=== PATIENT | female | born 1995 | race African-American/Black ===

== ENCOUNTER 2016-08-10 17:55 | Emergency (ER) | payer MEDICAID ==
[~2016-08-10] VITALS: Ht 167.6 cm; Wt 87.1 kg
[2016-08-10 18:10] VITALS: BP 111/56
[2016-08-10 18:29] LABS: BILIRUBIN,URINE NEGATIVE (NEG); GLUCOSE,URINE NEGATIVE (NEG); NITRITE,URINE NEGATIVE (NEG); PH,URINE 6.5; PROTEIN,URINE NEGATIVE (NEG-TRACE)
--- NOTE | 2016-08-10 18:41 | PHYS DOC ---
Past Medical History Past Medical History: No Pertinent History Past Surgical History: No Surgical History Alcohol Use: None Drug Use: None Adult General Chief Complaint Chief Complaint: SEXUALLY TRANSMITTED DISEASE HPI HPI Patient is a 21 year old female presents emergency department stating that she is wanting to be checked for sexually transmitted infections. She states that her roommate has Trichomonas in her roommate told her that she could catch the Trichomonas by the toilet seat. Patient states that she has sexually active with one partner without protection. She has not really concerned for sexually transmitted infections by way of sexual intercourse. Patient states that she has been having some white vaginal discharge she states that there is been no odor. She denies any abdominal pain, no nausea no vomiting no fever or chills. Patient denies any urinary symptoms. Review of Systems Review of Systems Constitutional: Denies fever or chills [] Eyes: Denies change in visual acuity, redness, or eye pain [] HENT: Denies nasal congestion or sore throat [] Respiratory: Denies cough or shortness of breath [] Cardiovascular: No additional information not addressed in HPI [] GI: Denies abdominal pain, nausea, vomiting, bloody stools or diarrhea [] : Denies dysuria or hematuria [] Musculoskeletal: Denies back pain or joint pain [] Integument: Denies rash or skin lesions [] Neurologic: Denies headache, focal weakness or sensory changes [] Endocrine: Denies polyuria or polydipsia [] Current Medications Current Medications Current Medications Medications (Trade) Dose Ordered Sig/Annabella Start Time Stop Time Status Last Admin Dose Admin Azithromycin (Zithromax) 1,000 mg 1X ONCE 08/10/16 18:45 08/10/16 18:46 DC 08/10/16 19:01 1,000 MG Ceftriaxone Sodium (Rocephin Im) 250 mg 1X ONCE 08/10/16 18:45 08/10/16 18:46 DC 08/10/16 19:02 250 MG Metronidazole (Flagyl) 2,000 mg 1X ONCE 08/10/16 18:45 08/10/16 18:46 DC 08/10/16 19:02 2,000 MG Allergies Allergies Allergies Coded Allergies Type Severity Reaction Last Updated Verified No Known Drug Allergies 08/10/16 No Physical Exam Physical Exam Constitutional: Well developed, well nourished, no acute distress, non-toxic appearance. [] HENT: Normocephalic, atraumatic, bilateral external ears normal, oropharynx moist, no oral exudates, nose normal. [] Eyes: PERRLA, EOMI, conjunctiva normal, no discharge. [] Neck: Normal range of motion, no tenderness, supple, no stridor. [] Cardiovascular:Heart rate regular rhythm, no murmur [] Lungs & Thorax: Bilateral breath sounds clear to auscultation [] Skin: Warm, dry, no erythema, no rash. [] Back: No tenderness Extremities: No tenderness, no cyanosis, no clubbing, ROM intact, no edema. [] Neurologic: Alert and oriented X 3, normal motor function, normal sensory function, no focal deficits noted. [] Psychologic: Affect normal, judgement normal, mood normal. [] Vaginal exam: Speculum exam patient noted to have white thick discharge. Manual exam no adnexal tenderness, no CMT noted Current Patient Data Vital Signs Vital Signs Date Time Temp Pulse Resp B/P (MAP) Pulse Ox O2 Delivery O2 Flow Rate FiO2 08/10/16 18:10 98.6 77 16 98 Room Air 98.6 Lab Values Laboratory Tests Test 08/10/16 17:27 08/10/16 18:15 POC Urine HCG, Qualitative Hcg negative (Negative) Urine Collection Type Unknown Urine Color Yellow Urine Clarity Clear Urine pH 6.5 Urine Specific [place] 1.020 Urine Protein Negative mg/dL (NEG-TRACE) Urine Glucose (UA) Negative mg/dL (NEG) Urine Ketones (Stick) Negative mg/dL (NEG) Urine Blood Negative (NEG) Urine Nitrite Negative (NEG) Urine Bilirubin Negative (NEG) Urine Urobilinogen Dipstick 2.0 mg/dL (0.2 mg/dL) Urine Leukocyte Esterase Moderate (NEG) Urine RBC 0 /HPF (0-2) Urine WBC 5-10 /HPF (0-4) Urine Squamous Epithelial Cells Mod /LPF Urine Bacteria Few /HPF (0-FEW) Urine Mucus Slight /LPF Microbiology 08/10/16 Wet Prep - Final, Complete EKG EKG [] Radiology/Procedures Radiology/Procedures [] Course & Med Decision Making Course & Med Decision Making Pertinent Labs and Imaging studies reviewed. (See chart for details) Patient was educated on STD exposure and transmission. Patient is still requesting to be treated for sexually transmitted infections she'll be provided with Rocephin and Zithromax and Flagyl. Wet prep was negative. Patient was positive for urinary tract infection. She'll be provided with Macrobid with encouragement to drink plenty of fluids such as water and cranberry juice. Also recommended avoiding cranberry juice cocktail carbonate beverages citrus fruits and alcohol sees her considered irritants to the bladder. Patient was provided with signs symptoms to return back to emergency department. She'll be discharged home in stable condition. [] Dragon Disclaimer Dragon Disclaimer This electronic medical record was generated, in whole or in part, using a voice recognition dictation system. Departure Departure Impression: Primary Impression: Urinary tract infection Additional Impression: Concern about STD in female without diagnosis Disposition: 01 HOME, SELF-CARE Condition: STABLE Referrals: NO PCP (PCP) Patient Instructions: Urinary Tract Infection, [id number] Additional Instructions: Activity as tolerated. Medication as prescribed. Tylenol or ibuprofen for fever chills or generalized body aches and discomfort. Drink plenty of fluids such as water and cranberry juice. Avoid cranberry juice cocktail, carbonate beverages, citrus fruits and alcohol sees her considered irritants to the bladder. Follow-up through primary care physician in the next 7-10 days. Return back to emergency prior signs symptoms of become worse. Scripts Nitrofurantoin Monohyd/M-Cryst (MACROBID 100 MG CAPSULE) 100 Mg Capsule 1 CAP PO BID, #14 CAP Prov: RON VIRK APRN 08/10/16 Problem Qualifiers RON VIRK APRN August 10, 2016 18:41
[2016-08-10 18:45] LABS: BACTERIA,URINE FEW /HPF (0-FEW); RBC,URINE 0 /HPF (0-2); SQUAMOUS EPITHELIAL CELL,UR MOD /LPF
[2016-08-10] MEDS ORDERED: cefTRIAXone IM 250 MG VIAL IM ONE (18:45)
[2016-08-10] MEDS ORDERED: metroNIDAZOLE 500 MG TABLET PO ONE (18:45)
[2016-08-10] MEDS ORDERED: AZITHROMYCIN 250 MG TABLET. PO ONE (18:45)
[2016-08-10] MEDS ORDERED: NITR100C62 PO (18:56)
--- NOTE | 2016-08-13 16:11 | VNOTE ---
CALL BACK NOTE CALL BACK Microbiology 08/10/16 Wet Prep - Final, Complete Patient is positive for gonorrhea and was not treated. I attempted to call her, she has no voicemail. Information given to the assisted living nursing director to contact patient. BRENDAN NOBLES APRN August 13, 2016 16:10
--- NOTE | 2016-08-13 16:22 | VNOTE ---
CALL BACK NOTE CALL BACK Microbiology 08/10/16 Wet Prep - Final, Complete Patient returned our call concerning her STD results. She was informed she tested positive for gonorrhea and educated about sexually transmitted diseases including treatment as well as prevention. I did instruct her to contact all has sex partners and ask them to get treated. BRENDAN NOBLES APRN August 13, 2016 16:22
== END 2016-08-10 19:12 | disposition home or self-care (01) ==
LOC: ER 17:55
DX: N39.0 Urinary tract infection, site not specified (principal); A54.9 Gonococcal infection, unspecified
CPT/HCPCS: 81001; 81025; 87491; 87591; 96372; 99284; J0696; Q0111; Q0144

== ENCOUNTER 2016-09-17 21:26 | Emergency (ER) | payer MEDICAID ==
[~2016-09-17] VITALS: Ht 167.6 cm; Wt 89.4 kg
[~2016-09-17 21:26] MED LIST: NITR100C62 PO
[2016-09-17 21:41] VITALS: BP 108/55
[2016-09-17 22:07] LABS: BILIRUBIN,URINE NEGATIVE (NEG); GLUCOSE,URINE NEGATIVE (NEG); NITRITE,URINE NEGATIVE (NEG); PROTEIN,URINE NEGATIVE (NEG-TRACE); UROBILINOGEN,URINE 0.2 mg/dL (0.2 mg/dL)
[2016-09-17 22:18] LABS: BACTERIA,URINE MANY /HPF (0-FEW); RBC,URINE 0 /HPF (0-2); SQUAMOUS EPITHELIAL CELL,UR MANY /LPF; WBC,URINE 20-40 /HPF (0-4); YEAST,URINE PRESENT /HPF
[2016-09-17] MEDS ORDERED: METR500T PO (22:52)
--- NOTE | 2016-09-17 22:52 | PHYS DOC ---
Past Medical History Past Medical History: No Pertinent History Past Surgical History: Alcohol Use: None Drug Use: None Adult General Chief Complaint Chief Complaint: SEXUALLY TRANSMITTED DISEASE HPI HPI Patient is a 21 year old female presents here today requesting treatment for an STD. Patient reports that she was sexually active 2 days ago with someone who she knows. She reports she had unprotected sex and since that she been having irritation in her vaginal area with a white vaginal discharge. Patient denies any dysuria frequency urgency. No bowel pain. No cough. No nausea vomiting diarrhea. No fevers shakes chills. Patient denies any history of hypertension diabetes liver longer kidney problems. Patient had no abdominal surgeries. Patient does not smoke drink or do any drugs. Patient's last menstrual period was August 31. Patient is 1 para 1. She does have a history of STDs in the past and she says this feels similar to prior STDs. Patient's physical exam was unremarkable except for yellow vaginal discharge from her cervix. Patient had no cervical motion tenderness. Patient's adnexa were nontender. There was no adnexal masses or tenderness. Patient's abdominal exam was nontender. I was soft nondistended no rebound or guarding. Patient not present with any signs or symptoms consistent with a surgical abdomen. Assessment and plan Likely STD. Cultures were sent however given the yellow discharge in the patient 's history and symptoms we will go ahead and treat her with Zithromax 1 g by mouth, Rocephin 250 IM, Flagyl by mouth and patient is requesting Diflucan. Precautions were reviewed with the patient. Will follow-up as instructed. Review of Systems Review of Systems Constitutional: Denies fever or chills [] Eyes: Denies change in visual acuity, redness, or eye pain [] HENT: Denies nasal congestion or sore throat [] All other review systems are negative except as documented in the history of present illness portion. Current Medications Current Medications Current Medications Medications (Trade) Dose Ordered Sig/Annabella Start Time Stop Time Status Last Admin Dose Admin Azithromycin (Zithromax) 1,000 mg 1X ONCE 09/17/16 23:30 09/17/16 23:31 DC 09/17/16 23:12 1,000 MG Ceftriaxone Sodium (Rocephin Im) 250 mg 1X ONCE 09/17/16 23:30 09/17/16 23:31 DC 09/17/16 23:12 250 MG Metronidazole (Flagyl) 500 mg 1X ONCE 09/17/16 23:30 09/17/16 23:31 DC 09/17/16 23:13 500 MG Allergies Allergies Allergies Coded Allergies Type Severity Reaction Last Updated Verified No Known Drug Allergies 08/10/16 No Physical Exam Physical Exam Constitutional: Well developed, well nourished, no acute distress, non-toxic appearance. [] HENT: Normocephalic, atraumatic, bilateral external ears normal, oropharynx moist, no oral exudates, nose normal. [] Eyes: PERRLA, EOMI, conjunctiva normal, no discharge. [] Neck: Normal range of motion, no tenderness, supple, no stridor. [] Cardiovascular:Heart rate regular rhythm, no murmur [] Lungs & Thorax: Bilateral breath sounds clear to auscultation [] Abdomen: Bowel sounds normal, soft, no tenderness, no masses, no pulsatile masses. [] Skin: Warm, dry, no erythema, no rash. [] Back: No tenderness, no CVA tenderness. [] Extremities: No tenderness, no cyanosis, no clubbing, ROM intact, no edema. [] Neurologic: Alert and oriented X 3, normal motor function, normal sensory function, no focal deficits noted. [] Psychologic: Affect normal, judgement normal, mood normal. [] Current Patient Data Vital Signs Vital Signs Date Time Temp Pulse Resp B/P (MAP) Pulse Ox O2 Delivery O2 Flow Rate FiO2 09/17/16 21:41 99.0 90 18 98 Room Air 99.0 Lab Values Laboratory Tests Test 09/17/16 20:59 09/17/16 21:45 POC Urine HCG, Qualitative Hcg negative (Negative) Urine Collection Type Unknown Urine Color Yellow Urine Clarity Clear Urine pH 6.0 Urine Specific [place] 1.020 Urine Protein Negative mg/dL (NEG-TRACE) Urine Glucose (UA) Negative mg/dL (NEG) Urine Ketones (Stick) Negative mg/dL (NEG) Urine Blood Negative (NEG) Urine Nitrite Negative (NEG) Urine Bilirubin Negative (NEG) Urine Urobilinogen Dipstick 0.2 mg/dL (0.2 mg/dL) Urine Leukocyte Esterase Moderate (NEG) Urine RBC 0 /HPF (0-2) Urine WBC 20-40 /HPF (0-4) Urine Squamous Epithelial Cells Many /LPF Urine Bacteria Many /HPF (0-FEW) Urine Mucus Mod /LPF Urine Yeast Present /HPF Microbiology 09/17/16 Wet Prep - Final, Complete EKG EKG [] Radiology/Procedures Radiology/Procedures [] Course & Med Decision Making Course & Med Decision Making Pertinent Labs and Imaging studies reviewed. (See chart for details) [] Dragon Disclaimer Dragon Disclaimer This electronic medical record was generated, in whole or in part, using a voice recognition dictation system. Departure Departure Impression: Primary Impression: STD (female) Disposition: HOME, SELF-CARE Condition: IMPROVED Referrals: NO PCP (PCP) Patient Instructions: Sexually Transmitted Disease Scripts Metronidazole (FLAGYL) 500 Mg Tablet 500 MG PO BID, #14 TAB Prov: BIJU BASS MD 09/17/16 BIJU BASS MD Sep 17, 2016 22:52
[2016-09-17] MEDS ORDERED: metroNIDAZOLE 500 MG TABLET PO ONE (23:30)
[2016-09-17] MEDS ORDERED: AZITHROMYCIN 250 MG TABLET. PO ONE (23:30)
[2016-09-17] MEDS ORDERED: cefTRIAXone IM 250 MG VIAL IM ONE (23:30)
== END 2016-09-17 23:31 | disposition home or self-care (01) ==
LOC: ER 21:26
DX: A64 Unspecified sexually transmitted disease (principal)
CPT/HCPCS: 81001; 81025; 87086; 87491; 87591; 96372; 99284; J0696; Q0111; Q0144